=== PATIENT | female | born 1995 | race Caucasian/White ===

== ENCOUNTER 2021-04-10 20:37 | Inpatient (IN) ==
[~2021-04-10 20:37] MED LIST: *HR* Nalbuphine 10 MG/ML AMPUL IV PRN; Famotidine 20 MG/2 ML VIAL IVP PRN; Lidocaine 1% 20 ML MDV INFILT PRN; Metoclopramide 10 MG/2 ML VIAL IVP PRN; Naloxone 0.4 MG/ML INJ IVP PRN; Ondansetron 4 MG/2 ML VIAL IVP PRN; Penicillin G Potassium 5,000,000 UNIT in 0.9 % Sodium Chloride Mini Bag 100 ML IVPB ONE
[2021-04-10] MEDS ORDERED: Ringers Solution, Lactated 1,000 ML IVC SCH (20:45)
[2021-04-10 21:03] LABS: Basophils % 0.3 %; Eosinophils # 0.1 K/mcL (0.0-0.6); Eosinophils % 0.9 %; Hematocrit 36.9 % (35.3-44.9); Hemoglobin 12.9 g/dL (11.5-15.4); Immature Granulocytes % 0.3 % (0-4); Mean Corpuscular Hemoglobin 31.5 pg (28.0-33.3); Mean Platelet Volume 12.1 fL (9.4-12.4); Monocytes # 0.8 K/mcL (0.0-1.3); Monocytes % 6.7 %; Neutrophils # 7.6 K/mcL (1.6-8.9); Platelet Count 219 K/mcL (140-400); Segmented Neutrophils % 65.8 %; White Blood Count 11.5 K/mcL (4.3-11.1)
[2021-04-10 21:11] LABS: Amphetamine Screen,Urine Negative ng/mL (Cutoff=1000); Barbiturate Screen,Urine Negative ng/mL (Cutoff=200); Benzodiazepines Screen,Urine Negative ng/mL (Cutoff=200); Cannabinoid Screen,Urine Negative ng/mL (Cutoff = 50); Cocaine Screen,Urine Negative ng/mL (Cutoff= 300); Opiate Screen,Urine Negative ng/mL (Cutoff=300); Phencyclidine Screen,Urine Negative ng/mL (Cutoff=25)
[2021-04-10] MEDS: Betamethasone Acet/SodPhos 30 MG/5 ML VIAL IM SCH (22:33)
[2021-04-11] MEDS: Penicillin G Potassium 2,500,000 UNIT/105 ML MLS IVPB SCH ×5 (00:58→21:37)
[2021-04-11] MEDS ORDERED: Famotidine 20 MG/2 ML VIAL IVP ONE (06:34)
[2021-04-11] MEDS ORDERED: EPHEDrine 50 MG/ML VIAL IVP PRN (12:24)
[2021-04-11] MEDS ORDERED: *HR* FentaNYL (PF) 100 MCG/2 ML VIAL EP ONE (12:24)
[2021-04-11] MEDS ORDERED: *HR* FentaNYL (PF) 100 MCG/2 ML VIAL ONE ×2 (12:29→16:19)
[2021-04-11] MEDS ORDERED: Epidural Premix (fent/bupiv) 110 ML EP SCH (12:30)
[2021-04-11] MEDS ORDERED: Ropivacaine/PF 0.2% 20 ML VIAL ONE (16:19)
[2021-04-11] MEDS ORDERED: miSOPROStoL 25 MCG TABLET PO PRN (21:24)
[2021-04-11] MEDS ORDERED: Oxytocin 20 units/ LR 1000 mL 20 UNIT/1,000 ML BAG IVC SCH (21:30)
[2021-04-11] MEDS: Betamethasone Acet/SodPhos 30 MG/5 ML VIAL IM SCH (22:16)
[2021-04-12] MEDS: Penicillin G Potassium 2,500,000 UNIT/105 ML MLS IVPB SCH ×4 (01:32→08:20)
[2021-04-12] MEDS ORDERED: *HR* FentaNYL (PF) 100 MCG/2 ML VIAL ONE (07:52)
[2021-04-12] MEDS ORDERED: Ropivacaine/PF 0.2% 20 ML VIAL ONE (07:53)
[2021-04-12] MEDS ORDERED: Benzocaine/Menthol 56 GM AEROSOL SPRAY TP PRN (13:24)
[2021-04-12] MEDS ORDERED: Oxytocin 20 units/ LR 1000 mL 20 UNIT/1,000 ML BAG IVC SCH (13:24)
[2021-04-12] MEDS ORDERED: Lanolin 7 G OINT...G. TP PRN (13:24)
[2021-04-12] MEDS: Ibuprofen 600 MG TABLET PO PRN ×2 (15:30→23:32)
[2021-04-13] MEDS: Ibuprofen 600 MG TABLET PO PRN ×3 (05:56→21:10)
[2021-04-13] MEDS: Famotidine 20 MG TABLET PO SCH ×2 (10:05→21:10)
[2021-04-13] MEDS: Prenatal Vit/FA 1 EACH TABLET PO SCH (10:05)
[2021-04-13] MEDS: Acetaminophen 325 MG TABLET PO PRN ×2 (10:06→21:11)
[2021-04-13 20:11] VITALS: O2SAT 100
[2021-04-14] MEDS: Acetaminophen 325 MG TABLET PO PRN (04:26)
[2021-04-14] MEDS: Ibuprofen 600 MG TABLET PO PRN ×2 (04:26→14:37)
[2021-04-14 07:59] VITALS: BP 128/79; PULSE 60; TEMP 98
[2021-04-14] MEDS: Prenatal Vit/FA 1 EACH TABLET PO SCH (08:07)
[2021-04-14] MEDS: Famotidine 20 MG TABLET PO SCH (08:07)
== END 2021-04-14 16:43 | disposition home or self-care (01) | DRG 807 ==
LOC: 1NENULAB → 1NENUOBS 04-12 13:22
PROVIDERS: ADMIT Registered Nurse; ATTEND Registered Nurse